=== PATIENT | male | born 1955 | race Caucasian/White ===

== ENCOUNTER 2022-05-25 18:28 | Emergency (ER) | payer MEDICARE, BC ==
[~2022-05-25] VITALS: Ht 172.7 cm; Wt 88.5 kg
--- NOTE | 2022-05-25 18:40 | NUR ---
Recieved pt from EMS in NAD,VS wnl. 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
--- NOTE | 2022-05-25 18:46 | NUR ---
MALU MD AT BEDSIDE FOR MEDICAL EXAM.
--- NOTE | 2022-05-25 19:12 | NUR ---
change of shift report from HCANDAN Pickett
[2022-05-25 19:14] LABS: HEMATOCRIT 41.8 % (36.7-47.1); MEAN CORPUSCULAR HEMOGLOBIN 31.2 uug (23.8-33.4); MEAN CORPUSCULAR VOLUME 92.6 fL (73.0-96.2); PLATELET COUNT (AUTO) 202 K/uL (152-348)
[2022-05-25 19:16] LABS: CREATININE 0.9 mg/dL (0.6-1.3); POTASSIUM 3.7 mmol/L (3.5-5.1)
[2022-05-25] MEDS ORDERED: METH-807 PO (19:17)
[2022-05-25] MEDS ORDERED: CLOT15CR27 TP (19:17)
[2022-05-25] MEDS ORDERED: PHEN-894 PO (19:17)
[2022-05-25] MEDS ORDERED: ACET-73 PO (19:17)
[2022-05-25] MEDS ORDERED: ATEN25TA PO (19:17)
[2022-05-25] MEDS ORDERED: METH4TAB3 PO (19:17)
[2022-05-25] MEDS ORDERED: AEROCHAMBER (19:17)
[2022-05-25] MEDS ORDERED: LORA0.5T48 PO (19:17)
[2022-05-25] MEDS ORDERED: MORP15TA PO (19:17)
[2022-05-25] MEDS ORDERED: CARB1CAP7 PO (19:17)
[2022-05-25] MEDS ORDERED: ALBE200T8 PO (19:17)
[2022-05-25] MEDS ORDERED: FURO40TA5 PO (19:17)
[2022-05-25] MEDS ORDERED: ROPI8TAB3 PO (19:17)
[2022-05-25] MEDS ORDERED: ALBUTEROL INH INH (19:17)
[2022-05-25] MEDS ORDERED: [UNRECOGNIZED DRUG - OTHER] (19:17)
[2022-05-25] MEDS ORDERED: PREG50CA PO (19:17)
[2022-05-25] MEDS ORDERED: QUET25TA PO (19:17)
[2022-05-25] MEDS ORDERED: CARB1TAB39 PO (19:17)
[2022-05-25] MEDS ORDERED: [UNRECOGNIZED DRUG - REMARK] (19:17)
[2022-05-25] MEDS ORDERED: ALFU10TA10 PO (19:17)
[2022-05-25] MEDS ORDERED: HYDR-3972 PO (19:17)
[2022-05-25] MEDS ORDERED: APIX5TAB PO (19:17)
[2022-05-25] MEDS ORDERED: ROPI2TAB26 PO (19:17)
[2022-05-25] MEDS ORDERED: ATOR20TA PO (19:17)
[2022-05-25] MEDS ORDERED: FURO20TA4 PO (19:17)
--- NOTE | 2022-05-25 19:35 | NUR ---
US tech at bedside
[2022-05-25 19:47] LABS: MAGNESIUM 1.7 mg/dL (1.8-2.4)
[2022-05-25] MEDS ORDERED: CYANOCOBALAMIN 1000 MCG/ML VIAL ONE (20:12)
[2022-05-25] MEDS ORDERED: CYAN-10 IJ (20:13)
[2022-05-25] MEDS ORDERED: SYRI-29 MC (20:13)
[2022-05-25] MEDS ORDERED: CYANOCOBALAMIN 1000 MCG/ML VIAL IM ONE (20:15)
--- NOTE | 2022-05-25 20:31 | NUR ---
Patient discharged to home in stable condition. Pt. AOx4, NAD noted, able to walk with a walker. Written and verbal after care instructions given. Patient verbalizes understanding of instructions. Stressed follow up or return to ER for worsening s/s.
[2022-05-25 20:33] VITALS: BP 106/70
== END 2022-05-25 20:34 | disposition home or self-care (01) ==
LOC: ER 18:30
DX: E53.8 Deficiency of other specified B group vitamins (principal); E83.42 Hypomagnesemia; G20 Parkinson's disease; Z79.899 Other long term (current) drug therapy; R60.0 Localized edema; R26.89 Other abnormalities of gait and mobility
CPT/HCPCS: 99284; 93970; 80048; 82607; 83735; 85025; 36415; 96372; 83921; J3420; A4663